=== PATIENT | male | born 1970 | race African-American/Black ===

== ENCOUNTER → 2021-06-26 | Outpatient (CLI) | payer OTHER ==
--- NOTE | 2021-06-26 16:01 | KCIC ---
EXAM: XR LUMBAR SPINE 4+V 06/26/2021 9:38 AM CLINICAL INDICATION: Lumbar the with sciatica left side for 3 days COMPARISON: None TECHNIQUE: 5 views of the lumbar spine. FINDINGS: There is partial sacralization of L5 on the left. No acute fracture. Alignment is normal. There is mild disc space narrowing of the lumbar spine with small anterior osteophytes at several lev els, greatest at L2-L3. No significant facet arthrosis. IMPRESSION: 1. Partial sacralization of L5. 2. Mild degenerative disc disease. Electronically signed by: Rosey Ruvalcaba MD (06/26/2021 3:58 PM) [id number]
== END ==
LOC: KCIC 09:35
PROVIDERS: ATTEND Family Medicine
DX: M51.36 Other intervertebral disc degeneration, lumbar region (principal); M48.061 Spinal stenosis, lumbar region without neurogenic claudication; M43.27 Fusion of spine, lumbosacral region; M25.78 Osteophyte, vertebrae
CPT/HCPCS: 72110